=== PATIENT | female | born 1980 | race Caucasian/White ===

== ENCOUNTER 2018-09-18 19:24 | Emergency (ER) | END 2018-09-18 22:17 | disposition home or self-care (01) ==

== ENCOUNTER 2018-11-30 18:26 | Emergency (ER) | payer OTHER ==
[~2018-11-30] VITALS: Wt 130.0 kg
[~2018-11-30 18:26] MED LIST: HYDR-4011 PO; NAPR-985 PO; ONDA4TAB14 PO
[2018-11-30] MEDS ORDERED: morphine 4 MG/ML VIAL IV STA (19:41)
[2018-11-30] MEDS ORDERED: SOD CHLORIDE 0.9% 1,000 ML IV STA (19:41)
[2018-11-30] MEDS ORDERED: ONDANSETRON 4 MG INJ IV STA (19:41)
[2018-11-30] MEDS ORDERED: DIPHENHYDRAMINE 50 MG INJ IV ONE (20:00)
[2018-11-30] MEDS ORDERED: HYDR-4011 PO (22:03)
[2018-11-30] MEDS ORDERED: FAMO-96 PO (22:03)
[2018-11-30] MEDS ORDERED: KETOROLAC 30 MG INJ IV STA (22:08)
[2018-11-30] MEDS ORDERED: DEXAMETHASONE 10 MG/ML 1 ML INJ IV ONE (23:00)
[2018-11-30] MEDS ORDERED: FAMOTIDINE 20 MG INJ IV ONE (23:00)
[2018-11-30] MEDS ORDERED: ONDANSETRON (ODT) 4 MG TAB ODT STA (23:36)
[2018-11-30] MEDS ORDERED: BEN25 PO (23:38)
[2018-11-30] MEDS ORDERED: ONDA4TAB14 PO (23:38)
[2018-12-01] MEDS ORDERED: DIPHENHYDRAMINE 25 MG CAP PO ONE
[2018-12-01 00:02] VITALS: BP 110/71; PULSE 80; RESP 18
--- NOTE | 2018-12-01 00:53 | ERD ---
ER Documentation Chief Complaint Chief Complaint R SIDE FLANK PAIN, HX OF GALSTONES HPI 38-year-old female presenting with right epigastric pain times 1 day. Patient states that she has a history of gallstones but the pain is intensified. Patient states that she has been told recently that she has a mass on her liver. She has an appointment in 1 week with a surgeon for follow-up on the liver mass. She is unsure of what the cause of the liver mass. Patient also has hives and has not taken medications. Primarily on her abdomen and neck. She is very itchy. She is never had this before. Patient has had episodes of vomiting and diarrhea that started today. No fevers. Medical history denies. Allergies to amoxicillin and penicillin. Surgical history denies. Social history denies ROS All systems reviewed and are negative except as per history of present illness. Medications Home Meds Active Scripts Diphenhydramine Hcl* (Benadryl*) 25 Mg Cap, 25 MG PO Q6, #30 CAP Prov:PATRICA SHAIKH PA-C 11/30/18 Ondansetron (Ondansetron Odt) 4 Mg Tab.rapdis, 4 MG PO Q6H PRN for NAUSEA AND/OR VOMITING, #10 TAB Prov:PATRICA SHAIKH PA-C 11/30/18 Famotidine* (Pepcid*) 20 Mg Tablet, 20 MG PO BID for 4 Days, #30 TAB Prov:PATRICA SHAIKH PA-C 11/30/18 Hydrocodone/Acetaminophen ([place] 5-325 Tablet) 1 Each Tablet, 1 TAB PO Q6H PRN for PAIN, #7 TAB Prov:PATRICA SHAIKH PA-C 11/30/18 Ondansetron (Ondansetron Odt) 4 Mg Tab.rapdis, 4 MG PO Q6H PRN for NAUSEA AND/OR VOMITING, #10 TAB Prov:JODI ANDERSON PA-C 09/18/18 Naproxen* (Naprosyn*) 500 Mg Tablet, 500 MG PO BID PRN for PAIN AND/OR INFLAMMATION, #30 TAB Prov:JODI ANDERSON PA-C 09/18/18 Hydrocodone/Acetaminophen ([place] 5-325 Tablet) 1 Each Tablet, 1 TAB PO Q6H PRN for PAIN, #7 TAB Prov:JODI ANDERSON VICTOR HUGO 09/18/18 Allergies Allergies: Coded Allergies: Penicillins (Verified Allergy, Unknown, SOB,difficulty breathing, 09/18/18) amoxicillin (Verified Allergy, Unknown, SOB,difficulty breathing, ) PMhx/Soc History of Surgery: No Anesthesia Reaction: No Hx Neurological Disorder: No Hx Respiratory Disorders: No Hx Cardiac Disorders: No Hx Psychiatric Problems: No Hx Miscellaneous Medical Probl: Yes (gallstones, kidney stones) Hx Alcohol Use: No Hx Substance Use: No Hx Tobacco Use: No Smoking Status: Never smoker FmHx Family History: No diabetes, No coronary disease, No other Physical Exam Vitals Vital Signs Date Temp Pulse Resp B/P (MAP) Pulse Ox O2 O2 Flow FiO2 Time Delivery Rate 12/01/18 98.2 80 18 110/71 95 Room Air 00:02 (84) 11/30/18 99.0 92 18 147/87 99 18:38 (107) Physical Exam GENERAL: The patient is well-appearing, well-nourished, in no acute distress HEENT: Atraumatic. Conjunctivae are pink. Pupils equal, round, and reactive to light. There is no scleral icterus. Tympanic membranes clear bilaterally. Oropharynx clear. No nystagmus or photophobia. NECK: C-spine is soft and supple. There is no meningismus. There is no cervical lymphadenopathy. CHEST: Clear to auscultation bilaterally. There are no rales, wheezes or rhonchi. HEART: Regular rate and rhythm. No murmurs, clicks, rubs or gallops. No S3 or S4. ABDOMEN:Soft, nontender and nondistended. Good bowel sounds. No rebound or guarding. No gross peritonitis. No gross organomegaly or masses. Tender to palpation in the epigastric region. No rebound tenderness. BACK: No midline or flank tenderness. SKIN: Erythema noted to the torso and neck. No pustules. No vesicles. Result Diagram: 11/30/18195311/30/181953 Results 24 hrs Laboratory Tests Test 11/30/18 19:54 11/30/18 19:56 White Blood Count 12.0 10^3/ul Red Blood Count 4.59 10^6/ul Hemoglobin 12.5 g/dl Hematocrit 38.4 % Mean Corpuscular Volume 83.7 fl Mean Corpuscular Hemoglobin 27.2 pg Mean Corpuscular Hemoglobin Concent 32.6 g/dl Red Cell Distribution Width 13.7 % Platelet Count 315 10^3/UL Mean Platelet Volume 9.3 fl Immature Granulocytes % 0.300 % Neutrophils % 64.9 % Lymphocytes % 26.1 % Monocytes % 5.4 % Eosinophils % 2.8 % Basophils % 0.5 % Nucleated Red Blood Cells % 0.0 /100WBC Immature Granulocytes # 0.040 10^3/ul Neutrophils # 7.8 10^3/ul Lymphocytes # 3.1 10^3/ul Monocytes # 0.7 10^3/ul Eosinophils # 0.3 10^3/ul Basophils # 0.1 10^3/ul Nucleated Red Blood Cells # 0.0 10^3/ul Urine Color YELLOW Urine Clarity SLIGHTLY CLOUDY Urine pH 5.0 Urine Specific [place] 1.019 Urine Ketones TRACE mg/dL Urine Nitrite NEGATIVE mg/dL Urine Bilirubin NEGATIVE mg/dL Urine Urobilinogen NEGATIVE mg/dL Urine Leukocyte Esterase NEGATIVE Yolanda/ul Urine Microscopic RBC 6 /HPF Urine Microscopic WBC 3 /HPF Urine Squamous Epithelial Cells MODERATE /HPF Urine Bacteria FEW /HPF Urine Mucus FEW /HPF Urine Hemoglobin 1+ mg/dL Urine Glucose NEGATIVE mg/dL Urine Total Protein NEGATIVE mg/dl Sodium Level 140 mmol/L Potassium Level 3.6 mmol/L Chloride Level 105 mmol/L Carbon Dioxide Level 25 mmol/L Anion Gap 10 Blood Urea Nitrogen 9 mg/dl Creatinine 0.61 mg/dl Est Glomerular Filtrat Rate mL/min > 60 mL/min Glucose Level 86 mg/dl Calcium Level 9.6 mg/dl Total Bilirubin 0.1 mg/dl Direct Bilirubin 0.00 mg/dl Indirect Bilirubin 0.1 mg/dl Aspartate Amino Transf (AST/SGOT) 29 IU/L Alanine Aminotransferase (ALT/SGPT) 23 IU/L Alkaline Phosphatase 71 IU/L Total Protein 7.8 g/dl Albumin 4.3 g/dl Globulin 3.50 g/dl Albumin/Globulin Ratio 1.22 Lipase 77 U/L POC Beta HCG, Qualitative NEGATIVE Current Medications Medications Dose Sig/Isrrael Start Time Status Last (Trade) Ordered Route PRN Stop Time Admin Dose Reason Admin Sodium 1,000 ml @ Q1H STAT 11/30/18 DC 11/30/18 Chloride 1,000 mls/hr IV 19:41 11/30/18 20:58 20:40 Morphine 4 mg ONCE STAT 11/30/18 DC 11/30/18 Sulfate IV 19:41 11/30/18 20:58 (morphine) 19:43 Ondansetron 4 mg ONCE STAT 11/30/18 DC 11/30/18 HCl (Zofran IV 19:41 11/30/18 20:58 Inj) 19:43 25 mg ONCE ONCE 11/30/18 DC 11/30/18 Diphenhydrami IV 20:00 11/30/18 20:58 ne HCl 20:01 (Benadryl) Ketorolac 30 mg ONCE STAT 11/30/18 DC 11/30/18 Tromethamine IV 22:08 11/30/18 22:14 (Toradol) 22:10 10 mg ONCE ONCE 11/30/18 DC 11/30/18 Dexamethasone IV 23:00 11/30/18 23:19 (Decadron) 23:01 Famotidine 20 mg ONCE ONCE 11/30/18 DC 11/30/18 (Pepcid Iv) IV 23:00 11/30/18 23:19 23:01 Ondansetron 4 mg ONCE STAT 11/30/18 DC 11/30/18 HCl (Zofran ODT 23:36 11/30/18 23:39 Odt) 23:39 25 mg ONCE ONCE 12/01/18 DC 11/30/18 Diphenhydrami PO 00:00 23:39 ne HCl 12/01/18 00:00 (Benadryl) Procedures/MDM DIAGNOSTIC IMAGING REPORT Patient: ROBERTO MENDOZA : 1980 Age: 38 Sex: F MR #: [id number] DOS: 11/30/181940 Ordering MD: CHEPE SHAIKH PA-C Location: [facility] Room/Bed: PROCEDURE: US Abdomen. CLINICAL INDICATION: Abdominal Pain TECHNIQUE: Multiple real-time images were acquired of the patient's abdomen and retroperitoneum utilizing a high resolution transducer. COMPARISON: CT abdomen pelvis September 18, 2018. FINDINGS: Study is limited due to the patient's body habitus. The liver is of normal size and contour with no intrahepatic ductal dilatation. Noted is a 4.2 x 3.0 x 3.8 cm well-demarcated hypoechoic mass in the lateral segment of the left lobe of the liver. This was seen on the prior CT but appears slightly larger. There is vascularity. No other discrete hepatic mass is present. There is diffuse fatty infiltration. Portal and hepatic vein are patent on color flow Doppler imaging. The common bile duct measures 2.6 millimeter in transverse diameter. sludge and stones are present in the lumen of the gallbladder.. Gallbladder wall is not thickened and no abnormal pericholecystic fluid collection is seen. No sonographic Fortune's sign was elicited during this exam. There is no ascites. The pancreas is not well seen. The right kidney measures 12 cm in length. No hydronephrosis, calculus or mass is identified.. There is no evidence of abdominal aortic aneurysm or caval thrombosis. IMPRESSION: Cholelithiasis. Sludge in gallbladder. No evidence of cholecystitis or biliary obstruction. Fatty liver. 4.2 x 3.0 x 3.8 cm focal hypoechoic mass lateral segment left lobe of the liver with vascularity which appears slightly larger than on recent CT. This mass is indeterminate for malignancy. Correlation with dynamic postcontrast CT is recommended for more definitive diagnosis. DIAGNOSTIC IMAGING REPORT Patient: ROBERTO MENDOZA : 1980 Age: 38 Sex: F [id number] [id number] DOS: 11/30/18 2208 Ordering MD: CHEPE SHAIKH PA-C Location: [facility] Room/Bed: PROCEDURE: CT ABDOMEN AND PELVIS WITHOUT CONTRAST. CLINICAL INDICATION: Abdominal pain TECHNIQUE: CT scan of the abdomen and pelvis without contrast was performed on a multidetector high-resolution CT scanner. The patient was scanned without intravenous contrast. Coronal and sagittal reformatted images were obtained from the axial source images. Images were reviewed on a high-resolution PACS workstation. The total exam CTDI equals 23.8 mGy and the total exam DLP equals 1494.5 mGy-cm. One or more of the following dose reduction techniques were used: Automated exposure control. Adjustment of the mA and/or kV according to patient size. Use of iterative reconstruction technique. DICOM images are available COMPARISON: CT 09/18/2018 FINDINGS: CT abdomen: The lung bases are clear. The heart size is within normal limits. There is no significant pericardial effusion. Hepatic morphology is within limits. There is diffuse fatty infiltration of liver, with areas of fatty sparing. There is a 2.6 cm ill-defined hypodensity within left lobe liver and a 2.3 cm ill-defined hypodensity within the medial right lobe of the liver. The spleen and pancreas are within normal limits. Both adrenal glands are within normal limits. There is a left adrenal gland low density nodule measuring 1.5 cm, likely adenoma. Both kidneys are in normal anatomic position. No evidence of obstruction or hydronephrosis. No gross renal/ureteric calculi. The visualized GI tract demonstrates normal caliber loops of small large bowel. No obstruction. Stool filled loops of large bowel suggestive of constipation. The appendix is within normal limits. There is colonic diverticulosis. The unenhanced aorta is unremarkable. No significant retroperitoneal lymphadenopathy. CT pelvis: The bladder is within normal limits. Uterus is unremarkable. Rectosigmoid colon demonstrate diverticulosis. No significant free fluid. No significant pelvic l ymphadenopathy. The visualized osseous structures appears to be within normal limits. IMPRESSION: 1. Diffuse fatty infiltration of liver, with areas of fatty sparing. Again identified is a 2.6 cm ill-defined hypodensity within the left lobe liver and 2.3 cm ill-defined hypodensity within the medial right lobe liver. Although this could be represent areas of focal fat or sparing, cannot exclude underlying hepatic lesion. Recommend follow-up MRI or CT scan of the abdomen with IV contrast following a multi phase liver protocol. 2. No evidence of acute intra-abdominal/pelvic inflammatory process. No evidence of bowel obstruction. The appendix is within normal limits. Sigmoid colon diverticulosis. 3. Unchanged 1.5 cm left adrenal gland adenoma. 4. No evidence of free fluid or free air. No gross focal fluid collections. ER Course: 38-year-old female presenting with epigastric pain. Patient has findings consistent with cholelithiasis with no findings consistent with cholecystitis, cholangitis or pancreatitis. I have low suspicion for choledocholithiasis. Patient CT scan is within normal limits and she has close follow-up for liver mass. Patient is told symptoms change or worsen to immediately return to the ER. All questions answered at discharge MDM: 38-year-old female Departure Diagnosis: Primary Impression: Gallstones Condition: Stable Patient Instructions: Gallstones Referrals: [facility] YOU HAVE RECEIVED A MEDICAL SCREENING EXAM AND THE RESULTS INDICATE THAT YOU DO NOT HAVE A CONDITION THAT REQUIRES URGENT TREATMENT IN THE EMERGENCY DEPARTMENT. FURTHER EVALUATION AND TREATMENT OF YOUR CONDITION CAN WAIT UNTIL YOU ARE SEEN IN YOUR DOCTORS OFFICE WITHIN THE NEXT 1-2 DAYS. IT IS YOUR RESPONSIBILITY TO MAKE AN APPOINTMENT FOR FOLOW-UP CARE. IF YOU HAVE A PRIMARY DOCTOR --you should call your primary doctor and schedule an appointment IF YOU DO NOT HAVE A PRIMARY DOCTOR YOU CAN CALL OUR PHYSICIAN REFERRAL HOTLINE AT IF YOU CAN NOT AFFORD TO SEE A PHYSICIAN YOU CAN CHOSE FROM THE FOLLOWING [facility] [address] [facility]. [facility] [address] [facility]. [facility] [address] [facility] [facility] [address] [facility]. [facility] [address] [facility]. [facility] [address] Additional Instructions: FOLLOW UP WITH YOUR PRIMARY CARE PHYSICIAN TOMORROW.Return to this facility if you are not improving as expected. PATRICA SHAIKH PA-C Dec 01, 2018 00:52
== END 2018-12-01 00:03 | disposition home or self-care (01) ==
LOC: FTE 18:26
DX: K80.20 Calculus of gallbladder without cholecystitis without obstruction (principal)
CPT/HCPCS: 36415; 74176; 76705; 80053; 81001; 81025; 83690; 85025; 96361; 96374; 96375; 96376; J1100; J1200; J1885; J2270; J2405; J7030; Z7502; Z7610; 81003

== ENCOUNTER 2019-01-18 08:06 | Emergency (ER) | payer OTHER ==
[~2019-01-18] VITALS: Wt 125.0 kg
[~2019-01-18 08:06] MED LIST changes: +BEN25 PO; +FAMO-96 PO
[2019-01-18] MEDS ORDERED: MED4DP PO (08:27)
[2019-01-18] MEDS ORDERED: PSEU-79 PO (08:27)
[2019-01-18] MEDS ORDERED: NAPR-985 PO (08:27)
--- NOTE | 2019-01-18 09:04 | ERD ---
ER Documentation Chief Complaint Chief Complaint sore throat, nausea, fever HPI 38-year-old female presenting with sore throat and nausea. Patient has been taking Robitussin with no alleviation of symptoms. She has some mild nasal congestion. No fevers. Denies abdominal pain. Denies any cough or shortness of breath. Denies medical problems. Allergy to penicillin amoxicillin. Surgical history denies. Social history denies ROS All systems reviewed and are negative except as per history of present illness. Medications Home Meds Active Scripts Methylprednisolone* (Medrol* DOSE PACK) 4 Mg/Dose-Pack Tab.ds.pk, 4 MG PO . DIRECTED, #1 PACKET Prov:PATRICA SHAIKH PA-C 01/18/19 Naproxen* (Naprosyn*) 500 Mg Tablet, 500 MG PO BID PRN for PAIN AND/OR INFLAMMATION, #30 TAB Prov:PATRICA SHAIKH PA-C 01/18/19 Pseudoephedrine Hcl* (Suphedrin*) 30 Mg Tablet, 30 MG PO Q6 PRN for CONGESTION, #30 TAB Prov:PATRICA SHAIKH PA-C 01/18/19 Diphenhydramine Hcl* (Benadryl*) 25 Mg Cap, 25 MG PO Q6, #30 CAP Prov:PATRICA SHAIKH PA-C 11/30/18 Ondansetron (Ondansetron Odt) 4 Mg Tab.rapdis, 4 MG PO Q6H PRN for NAUSEA AND/OR VOMITING, #10 TAB Prov:PATRICA SHAIKH PA-C 11/30/18 Famotidine* (Pepcid*) 20 Mg Tablet, 20 MG PO BID for 4 Days, #30 TAB Prov:PATRICA SHAIKHC 11/30/18 Hydrocodone/Acetaminophen ([place] 5-325 Tablet) 1 Each Tablet, 1 TAB PO Q6H PRN for PAIN, #7 TAB Prov:PATRICA SHAIKH PA-C 11/30/18 Ondansetron (Ondansetron Odt) 4 Mg Tab.rapdis, 4 MG PO Q6H PRN for NAUSEA AND/OR VOMITING, #10 TAB Prov:JODI ANDERSON PA-C 09/18/18 Naproxen* (Naprosyn*) 500 Mg Tablet, 500 MG PO BID PRN for PAIN AND/OR INFLAMMATION, #30 TAB Prov:JODI ANDERSON PA-C 09/18/18 Hydrocodone/Acetaminophen ([place] 5-325 Tablet) 1 Each Tablet, 1 TAB PO Q6H PRN for PAIN, #7 TAB Prov:JODI ANDERSON PA-C 09/18/18 Allergies Allergies: Coded Allergies: Penicillins (Verified Allergy, Unknown, SOB,difficulty breathing, 01/18/19) amoxicillin (Verified Allergy, Unknown, SOB,difficulty breathing, 01/18/19) PMhx/Soc Medical and Surgical Hx: pt denies Surgical Hx History of Surgery: No Anesthesia Reaction: No Hx Neurological Disorder: No Hx Respiratory Disorders: No Hx Cardiac Disorders: No Hx Psychiatric Problems: No Hx Miscellaneous Medical Probl: Yes (gallstones, kidney stones) Hx Alcohol Use: No Hx Substance Use: No Hx Tobacco Use: No Smoking Status: Never smoker FmHx Family History: No diabetes, No coronary disease, No other Physical Exam Vitals Vital Signs Date Temp Pulse Resp B/P (MAP) Pulse Ox O2 O2 Flow FiO2 Time Delivery Rate 01/18/19 99.0 106 20 127/88 97 08:10 (101) Physical Exam GENERAL: The patient is well-appearing, well-nourished, in no acute distress HEENT: Atraumatic. Conjunctivae are pink. Pupils equal, round, and reactive to light. There is no scleral icterus. Tympanic membranes clear bilaterally. Oropharynx clear. NECK: C-spine is soft and supple. There is no meningismus. There is no cervi mihai lymphadenopathy. CHEST: Clear to auscultation bilaterally. There are no rales, wheezes or rhonchi. HEART: Regular rate and rhythm. No murmurs, clicks, rubs or gallops. Procedures/MDM MDM: 38-year-old female presenting with sore throat. Patient's exam is non- concerning. Patient likely has viral pharyngitis and will be treated with supportive medications. I do not feel antibiotics are indicated. Patient has some nasal congestion will be treated with decongestants. Patient is told symptoms change or worsen to return immediately to the ER. All questions answered at discharge Departure Diagnosis: Primary Impression: Sore throat Condition: Stable Patient Instructions: Self-Care for Sore Throats Referrals: [facility] YOU HAVE RECEIVED A MEDICAL SCREENING EXAM AND THE RESULTS INDICATE THAT YOU DO NOT HAVE A CONDITION THAT REQUIRES URGENT TREATMENT IN THE EMERGENCY DEPARTMENT. FURTHER EVALUATION AND TREATMENT OF YOUR CONDITION CAN WAIT UNTIL YOU ARE SEEN IN YOUR DOCTORS OFFICE WITHIN THE NEXT 1-2 DAYS. IT IS YOUR RESPONSIBILITY TO MAKE AN APPOINTMENT FOR FOLOW-UP CARE. IF YOU HAVE A PRIMARY DOCTOR --you should call your primary doctor and schedule an appointment IF YOU DO NOT HAVE A PRIMARY DOCTOR YOU CAN CALL OUR PHYSICIAN REFERRAL HOTLINE AT IF YOU CAN NOT AFFORD TO SEE A PHYSICIAN YOU CAN CHOSE FROM THE FOLLOWING [facility] [address] [facility]. [facility] [address] [facility]. [facility] [address] [facility] [address] [facility]. [facility] [address] [facility]. [facility] [address] Additional Instructions: FOLLOW UP WITH YOUR PRIMARY CARE PHYSICIAN TOMORROW.Return to this facility if you are not improving as expected. PATRICA SHAIKH PA-C Jan 18, 2019 09:04
[2019-01-18 09:09] VITALS: BP 118/65; PULSE 96; RESP 19
== END 2019-01-18 09:11 | disposition home or self-care (01) ==
LOC: FTE 08:06
DX: J02.9 Acute pharyngitis, unspecified (principal)
CPT/HCPCS: 99283

== ENCOUNTER 2019-01-30 06:25 | Day surgery (SDC) | payer OTHER ==
[~2019-01-30] VITALS: Ht 157.5 cm; Wt 125.0 kg
[2019-01-30] VITALS (22 sets, daily range): BP systolic 106–124; BP diastolic 58–75; PULSE 84–124; RESP 14–19; Ht 157.5 cm; Wt 125.0 kg
[~2019-01-30 06:25] MED LIST changes: +MED4DP PO; +PSEU-79 PO
[2019-01-30] MEDS ORDERED: PROPOFOL 200 MG INJ ONE (07:00)
[2019-01-30] MEDS ORDERED: METOCLOPRAMIDE 10 MG INJ ONE (07:00)
[2019-01-30] MEDS ORDERED: DEXAMETHASONE 4 MG/ML 5 ML INJ ONE (07:00)
[2019-01-30] MEDS ORDERED: LIDOCAINE 2% (SDV) 5 ML INJ ONE (07:00)
[2019-01-30] MEDS ORDERED: ROPIVACAINE 0.5 % 30 ML VIAL ONE (07:00)
[2019-01-30] MEDS ORDERED: CLINDAMYCIN 900 MG/50 ML D5W IVPB IVPB ONE (07:00)
[2019-01-30] MEDS ORDERED: LEVO1TAB47 PO (07:12)
[2019-01-30] MEDS ORDERED: FENTAnyl 50 MCG/ML VIAL ONE (07:58)
[2019-01-30] MEDS ORDERED: MIDAZOLAM 1 MG/ML 2 ML INJ ONE (07:59)
[2019-01-30] MEDS ORDERED: ONDANSETRON 4 MG INJ ONE (07:59)
[2019-01-30] MEDS ORDERED: SUCCINYLCHOLINE CHLORIDE 100 MG/5 ML SYG IV ONE (08:05)
[2019-01-30] MEDS ORDERED: ROCURONIUM 50 MG INJ ONE (08:05)
[2019-01-30] MEDS ORDERED: CEFAZOLIN 1 GM INJ ONE (08:05)
[2019-01-30] MEDS ORDERED: HYDROmorphONE 2 MG/ML SYG ONE (08:51)
--- NOTE | 2019-01-30 09:19 | PREAC ---
Date/Time of Note Date/Time of Note DATE: 01/30/19 TIME: 09:18 Anesthesia Eval and Record Evaluation Time Pre-Procedure Interview DATE: 01/30/19 TIME: 09:18 Age 38 Sex female NPO: 8 hrs Preoperative diagnosis gallstones Planned procedure lap ines Past Medical History Past Medical History: Includes Pulm: Sleep Apnea GI: GERD, Morbid obesity Surgery & Anesthesia Issues Hx of difficult intubation Meds Anticoagulation: No Beta Lisa within 24 hr: No Reason Beta Lisa not given: Pt. not on B-Lisa Reported Medications Levonorgestrel-Eth Estradiol (LEVONORGESTREL-ETH ESTRADIOL) 1 Each Tablet, 1 TAB PO DAILY 01/30/19 Discontinued Scripts Methylprednisolone* (Medrol* DOSE PACK) 4 Mg/Dose-Pack Tab.ds.pk, 4 MG PO . DIRECTED, #1 PACKET Prov:PATRICA SHAIKH PA-C 01/18/19 Naproxen* (Naprosyn*) 500 Mg Tablet, 500 MG PO BID PRN for PAIN AND/OR INFLAMMATION, #30 TAB Prov:PATRICA SHAIKH PA-C 01/18/19 Pseudoephedrine Hcl* (Suphedrin*) 30 Mg Tablet, 30 MG PO Q6 PRN for CONGESTION, #30 TAB Prov:PATRICA SHAIKH PA-C 01/18/19 Diphenhydramine Hcl* (Benadryl*) 25 Mg Cap, 25 MG PO Q6, #30 CAP Prov:PATRICA SHAIKH PA-C 11/30/18 Ondansetron (Ondansetron Odt) 4 Mg Tab.rapdis, 4 MG PO Q6H PRN for NAUSEA AND/OR VOMITING, #10 TAB Prov:PATRICA SHAIKH PA-C 11/30/18 Famotidine* (Pepcid*) 20 Mg Tablet, 20 MG PO BID for 4 Days, #30 TAB Prov:PATRICA SHAIKH PA-C 11/30/18 Hydrocodone/Acetaminophen ([place] 5-325 Tablet) 1 Each Tablet, 1 TAB PO Q6H PRN for PAIN, #7 TAB Prov:PATRICA SHAIKH PA-C 11/30/18 Ondansetron (Ondansetron Odt) 4 Mg Tab.rapdis, 4 MG PO Q6H PRN for NAUSEA AND/OR VOMITING, #10 TAB Prov:JODI ANDERSON PA-C 09/18/18 Naproxen* (Naprosyn*) 500 Mg Tablet, 500 MG PO BID PRN for PAIN AND/OR INFLAMMATION, #30 TAB Prov:JODI ANDERSON PA-C 09/18/18 Hydrocodone/Acetaminophen ([place] 5-325 Tablet) 1 Each Tablet, 1 TAB PO Q6H PRN for PAIN, #7 TAB Prov:JODI ANDERSON PA-C 09/18/18 Meds reviewed: Yes Allergies Coded Allergies: Penicillins (Verified Allergy, Unknown, SOB,difficulty breathing, 01/30/19) PER PT amoxicillin (Verified Allergy, Unknown, SOB,difficulty breathing, 01/30/19) PER PT Allergies Reviewed: Yes Labs/Studies Labs Reviewed: Reviewed by anesthesiologist test: Negative Pre-procedure Exam Last vitals Vital Signs Date Temp Pulse Resp B/P (MAP) Pulse Ox O2 O2 Flow FiO2 Time Delivery Rate 01/30/19 97.7 85 16 108/67 97 Room Air 07:32 (81) Airway: Adequate mouth opening, Adequate thyromental dist Mallampati: Mallampati IV Teeth: Normal Lung: Normal Heart: Normal ASA Physical Status ASA physical status: 3 Emergency: None Planned Anesthetic General/MAC: ETT Planned Pain Management Single shot nerve block, Parenteral pain med, Local by surgeon Pre-operative Attestations Prior to commencing anesthesia and surgery, the patient was re-evaluated, there was verification of: *The patient's identity *The results of appropriate recent lab work and preoperative vital signs *The above evaluation not changing prior to induction *Anesthetic plan, risk benefits, alternative and complications discussed with patient/family; questions answered; patient/family understands, accepts and wishes to proceed. GENA REED MD Jan 30, 2019 09:19
[2019-01-30] MEDS ORDERED: BUPIVACAINE 0.5%/EPI (SDV) 30 ML INJ ONE ×2 (09:27→11:17)
--- NOTE | 2019-01-30 09:27 | HPN ---
Date/Time of Note Date/Time of Note DATE: 01/30/19 TIME: 09:27 Interval H&P Admission Note Pt. seen H&P reviewed: No system changes JEANA SZYMANSKI MD Jan 30, 2019 09:27
[2019-01-30] MEDS ORDERED: LEVALBUTEROL (NEB) 1.25 MG/0.5 ML AMP HHN PRN (09:30)
[2019-01-30] MEDS ORDERED: IPRATROPIUM (NEB) 0.5 MG/2.5 ML AMP HHN PRN (09:30)
[2019-01-30] MEDS ORDERED: MIDAZOLAM 1 MG/ML 2 ML INJ IV PRN (09:30)
[2019-01-30] MEDS ORDERED: MEPERIDINE 25 MG INJ IV PRN (09:30)
[2019-01-30] MEDS ORDERED: hydrALAzine 20 MG INJ IV PRN (09:30)
[2019-01-30] MEDS ORDERED: ONDANSETRON 4 MG INJ IV PRN ×2 (09:30→11:00)
[2019-01-30] MEDS ORDERED: FENTAnyl 50 MCG/ML VIAL IV PRN ×2 (09:30)
[2019-01-30] MEDS ORDERED: DIPHENHYDRAMINE 50 MG INJ IV PRN (09:30)
[2019-01-30] MEDS ORDERED: LABETALOL HCL 20MG INJ IV PRN (09:30)
[2019-01-30] MEDS ORDERED: HYDROmorphONE 1 MG/5 ML IV SYRINGE IV PRN ×3 (09:30)
[2019-01-30] MEDS ORDERED: LIDOCAINE 1%/EPI (1:100,000) (MDV) 20 ML ONE (10:54)
[2019-01-30] MEDS ORDERED: HYDROCODONE/APAP (5/325) TAB PO PRN ×2 (11:00)
[2019-01-30] MEDS ORDERED: IBUPROFEN 600 MG TAB PO PRN (11:00)
[2019-01-30] MEDS ORDERED: morphine 2 MG INJ IV PRN (11:00)
--- NOTE | 2019-01-30 11:03 | OPR ---
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 The patient had clinical signs and symptoms of chronic cholecystitis and cholelithiasis which was confirmed via an ultrasound which showed the presence of gallstones. The patient was scheduled for laparoscopic cholecystectomy; possible open as definitive treatment to prevent further sequelae of gallstone disease which include but are not limited to: Gangrenous cholecystitis, choledocholithiasis, gallstone pancreatitis, ascending cholangitis, etc. All risks and benefits of the procedure including but not limited to: Wound infection, excessive bleeding, common bile duct injury, postoperative biliary leak, retained common bile duct stone, injury to intra-abdominal organs, conversion to open procedure, possible need for subsequent surgeries, etc. were all explained to the patient in full detail. She fully understood and wished to proceed with the procedure. Informed consent was therefore obtained. Procedure Description The patient was brought to the operating room and placed supine on the operating table. Bilateral sequential compression devices were placed on both lower extremities. A dose of broad-spectrum perioperative intravenous antibiotics was given. After the induction of smooth general endotracheal anesthesia the patient's abdomen was prepped and draped in the standard surgical fashion. After performance of the surgical timeout a 5 mm incision was made superior to the umbilicus and a Veress needle was used to access the intra-abdominal cavity atraumatically. Pneumoperitoneum was then obtained and the Veress needle was exchanged for a 5 mm trocar through which a 5 mm laparoscope was placed. Three further working ports were then placed a 12 mm port in the sub-xiphoid region and two 5 mm ports in the right upper quadrant. All port sites were anesthetized with 0.5% Marcaine with epinephrine prior to incision. Using atraumatic graspers the gallbladder was grasped and retracted superiorly and laterally exposing the area of Mckee's pouch. Dissection was begun in this area using a combination of blunt dissection and hook electrocautery. The cystic duct was identified as it entered straight into the neck of the gallbladder. It was dissected free of surrounding tissues and clipped proximally and distally x 3 and transected using EndoShears. Dissection was then continued posteriorly. The cystic artery was identified and dissected free of surrounding tissues. It too was clipped proximally and distally x 2 and transected using EndoShears. The gallbladder was then dissected off the liver bed using electrocautery. Once completely free the gallbladder was placed in an Endo Catch bag and withdrawn through the subxiphoid port site and passed off the field as specimen. Hemostasis was then inspected for and noted to be total. The abdomen was then irrigated with several liters of warm normal saline and the irrigant returned crystal clear. The fascia of the subxiphoid port site was then reapproximated using a parmjit-close device. Pneumoperitoneum was then released and all remaining trochars were withdrawn under direct vision. The subcutaneous tissues were irrigated with more warm normal saline and further local anesthesia was applied around the skin of the incision sites. The skin was then reapproximated using 4-0 Monocryl sutures in subcuticular fashion. The incisions were cleaned and Dermabond was applied to the incisions and the patient was awoken from anesthesia and transported to the recovery room in stable condition. A tap block was performed at the conclusion of the case by the anesthesiologist and will be documented separately by him. All counts were correct at the end of the case x 2. JEANA SZYMANSKI MD Jan 30, 2019 11:03
--- NOTE | 2019-01-30 15:15 | PAC ---
Date/Time of Note Date/Time of Note DATE: 01/30/19 TIME: 15:15 Post-Anesthesia Notes Post-Anesthesia Note Last documented vital signs Vital Signs Date Temp Pulse Resp B/P (MAP) Pulse Ox O2 O2 Flow FiO2 Time Delivery Rate 01/30/19 96.9 95 18 113/74 96 Room Air 12:55 (87) 01/30/19 12:50 01/30/19 21 11:45 Activity: WNL Respiratory function: WNL Cardiovascular function: WNL Mental status: Baseline Pain reasonably controlled: Yes Hydration appropriate: Yes Nausea/Vomiting absent: Yes GENA REED MD Jan 30, 2019 15:15
== END 2019-01-30 13:30 | disposition home or self-care (01) ==
LOC: SDS 06:25
PROVIDERS: ATTEND Surgery
DX: K80.20 Calculus of gallbladder without cholecystitis without obstruction (principal); G47.30 Sleep apnea, unspecified
CPT/HCPCS: 47562; 88304; 94664; J0690; J1100; J1170; J2175; J2250; J2405; J2765; J2795; J3010; Z7512; Z7610